=== PATIENT | female | born 1995 | race Caucasian/White ===

== ENCOUNTER 2019-04-08 19:45 | Emergency (ER) | payer MEDICAID ==
[~2019-04-08] VITALS: Ht 165.1 cm; Wt 108.9 kg
[2019-04-08 19:55] VITALS: BP_SYST 148
--- NOTE | 2019-04-08 19:55 | NUR ---
Patient triaged and placed in waiting room. VSS and patient appears in no acute distress at this time. Accompanied by self, awaiting available bed, and MD notified of need for MSE.
--- NOTE | 2019-04-08 20:05 | NUR ---
Patient to ER bed for evaluation.
--- NOTE | 2019-04-08 20:08 | NUR ---
Pt AAOx4 ambulated into ED c/o 04/20 pain to R calf r/t tattoo application x 1 week ago. Swelling, mild peeling to site noted. Pt reports pain increases upon palpation and walking. No other injuries/complaints per pt/noted. Will continue to monitor.
--- NOTE | 2019-04-08 20:14 | NUR ---
ER GREGOR Rod examining patient.
[2019-04-08] MEDS ORDERED: IBUPROFEN 600 MG TABLET PO ONE (20:30)
[2019-04-08] MEDS ORDERED: SULFAMETHOXAZOLE/TRIMETHOPR DS 1 TABLET PO ONE (20:30)
[2019-04-08] MEDS ORDERED: CEPHALEXIN 500 MG CAPSULE PO ONE (20:30)
--- NOTE | 2019-04-08 20:34 | NUR ---
Medication administered. Pt tolerated well. No adverse reactions noted.
--- NOTE | 2019-04-08 20:57 | NUR ---
Patient given written and verbal discharge instructions and verbalizes understanding. ER TIRE BUFFER Viola discussed with patient the results and treatment provided. Patient in stable condition. ID arm band removed. Rx of Keflex, Bactrim, Motrin, Mupirocin given. Patient educated on pain management and to follow up with PMD. Pain Scale 0. Opportunity for questions provided and answered. Medication side effect fact sheet provided.
[2019-04-08 20:58] VITALS: BP_SYST 143
== END 2019-04-08 20:57 | disposition home or self-care (01) ==
LOC: SED 19:45
DX: L03.115 Cellulitis of right lower limb (principal); R03.0 Elevated blood-pressure reading, without diagnosis of hypertension
CPT/HCPCS: 99284

== ENCOUNTER 2024-03-14 19:38 | Emergency (ER) | payer MEDICAID, OTHER ==
[~2024-03-14] VITALS: Ht 162.6 cm; Wt 108.9 kg
[2024-03-14 19:48] VITALS: BP_SYST 166; PULSE 81; RESP 20; TEMP 97.8; O2SAT 99
[2024-03-14] MEDS: KETOROLAC TROMETHAMINE 30 MG VIAL IM ONE (20:04)
[2024-03-14 20:18] LABS: BASOPHILS # (AUTO) 0.1 K/uL (0.0-0.2); BASOPHILS % (AUTO) 0.6 % (0.0-2.0); EOSINOPHILS # (AUTO) 0.1 K/uL (0.0-0.4); EOSINOPHILS % (AUTO) 0.9 % (0.0-4.0); HEMATOCRIT 34.6 % (36-48); HEMOGLOBIN 11.4 g/dL (12.0-16.0); LYMPHOCYTES # (AUTO) 3.5 K/uL (1.0-5.5); LYMPHOCYTES % (AUTO) 27.4 % (20.5-51.5); MEAN CORPUSCULAR HEMOGLOBIN 25 pg (27-31); MEAN CORPUSCULAR HGB CONC 33 % (32-36); MEAN CORPUSCULAR VOLUME 76 fL (79.0-98.0); MONOCYTES # (AUTO) 0.7 K/uL (0.0-1.0); MONOCYTES % (AUTO) 5.8 % (1.7-9.3); NEUTROPHILS # (AUTO) 8.3 K/uL (1.8-7.7); NEUTROPHILS % (AUTO) 65.3 % (40.0-70.0); PLATELET COUNT (AUTO) 380 K/uL (130-430); RED BLOOD CELL COUNT(AUTO) 4.57 MIL/uL (4.2-6.2); RED CELL DISTRIBUTION WIDTH 15.2 % (9.0-15.0); WHITE BLOOD COUNT (AUTO) 12.7 K/uL (4.8-10.8)
[2024-03-14 20:45] LABS: BILIRUBIN,URINE NEGATIVE (NEGATIVE); BLOOD, URINE NEGATIVE (NEGATIVE); CLARITY/URINE SL CLOUDY (CLEAR); COLOR,URINE YELLOW (YELLOW); GLUCOSE,URINE NEGATIVE (NEGATIVE); KETONES,URINE TRACE (NEGATIVE); LEUKOCYTE ESTERASE ,URINE NEGATIVE (NEGATIVE); NITRITE, URINE NEGATIVE (NEGATIVE); PROTEIN URINE NEGATIVE (NEGATIVE)
[2024-03-14 20:51] LABS: CALCIUM 8.1 mg/dL (8.4-11.0); CREATININE 1.31 mg/dL (0.55-1.30); POTASSIUM 4.4 mmol/L (3.5-5.1)
[2024-03-14 21:09] LABS: RBC,URINE 0-3 /HPF (0-3); WBC,URINE 0-3 /HPF (0-3)
[2024-03-14 21:15] LABS: BACTERIA,URINE FEW /HPF (None Seen); MUCUS,URINE 1+ /LPF (None Seen)
[2024-03-14 22:10] VITALS: BP_SYST 138; PULSE 79; RESP 18; TEMP 98.3; O2SAT 99
== END 2024-03-14 22:10 | disposition home or self-care (01) ==
LOC: SED 19:38
DX: R10.84 Generalized abdominal pain (principal)
CPT/HCPCS: 99285; 74176; 80048; 81001; 85025; 36415; 81025; 96372; J1885; 81000; 81015